=== PATIENT | female | born 1985 ===

== ENCOUNTER 2022-08-23 04:14 | Day surgery (SDC) | payer OTHER ==
[2022-08-22 17:56] VITALS: BMI 20.3
[2022-08-23] MEDS ORDERED: METHYLENE BLUE 50 MG/10 ML AMPUL ONE (14:40)
[2022-08-23] MEDS ORDERED: ISOSULFAN BLUE 50 MG/5 ML VIAL SQ ONE (14:40)
[2022-08-23] MEDS ORDERED: LIDOCAINE HCL 1%, 10 MG/ML (20ML VIAL) INF ONE ×3 (15:10→15:50)
[2022-08-23] MEDS ORDERED: FENTANYL CITRATE/PF 50 MCG/ML VIAL ONE ×2 (15:28→16:50)
[2022-08-23] MEDS ORDERED: MIDAZOLAM HCL 2 MG/2 ML SINGLE DOSE VIAL ONE (15:28)
[2022-08-23] MEDS ORDERED: METHYLENE BLUE 1% 10 MG/1 ML VIAL NR ONE (15:50)
[2022-08-23] MEDS ORDERED: BACITRACIN 15 GM TUBE TOPICAL OINTMENT ONE (16:14)
[2022-08-23] MEDS ORDERED: ONDANSETRON 4 MG/2 ML VIAL IVPUSH PRN (16:34)
[2022-08-23] MEDS ORDERED: FENTANYL CITRATE/PF 50 MCG/ML VIAL IVPUSH PRN (16:34)
[2022-08-23 17:53] VITALS: RESP 20; TEMP 98.2
[2022-08-23 19:22] VITALS: BP 107/65; PULSE 61
== END 2022-08-23 19:11 | disposition home or self-care (01) ==
LOC: JASU-SURG 04:14
PROVIDERS: ATTEND Surgery
PROC: 0HQX0ZZ Repair Left Nipple, Open Approach (ICD-10-PCS; principal; 2022-08-23 14:00)
DX: D24.2 Benign neoplasm of left breast (principal)
CPT/HCPCS: 81025; 88307-TC; 94760; Q9968